=== PATIENT | female | born 1970 ===

== ENCOUNTER 2017-06-09 10:11 | Emergency (ER) | payer MEDICAID ==
[2017-06-09 10:47] VITALS: BMI 34.1
[2017-06-09 10:50] VITALS: RESP 18
[2017-06-09 11:55] LABS: BASO % 0.4 % (0.0-2.0); EOS # 0.1 K/uL (0.0-0.7); EOS % 1.8 % (0.0-4.0); HEMATOCRIT 38.1 % (34.0-47.0); LYMPH # 2.2 K/uL (1.0-4.3); LYMPH % 43.2 % (20.0-40.0); MEAN CELL VOLUME 88.3 fL (81.0-99.0); MEAN CORPUSCULAR HEMOGLOBIN 29.5 pg (27.0-31.0); MEAN CORPUSCULAR HGB CONC 33.4 g/dL (33.0-37.0); MEAN PLATELET VOLUME 7.7 fL (7.2-11.7); MONO # 0.5 K/uL (0.0-0.8); MONO % 10.4 % (0.0-10.0); NRBC % 0.1 % (0.0-2.0); RED CELL DISTRIBUTION WIDTH 14.2 % (11.5-14.5); WHITE BLOOD COUNT 5.2 K/uL (4.8-10.8)
[2017-06-09 12:06] LABS: CHLORIDE 100 mmol/L (98-107)
[2017-06-09 12:07] LABS: POTASSIUM 3.9 mmol/L (3.6-5.2); SODIUM 137 mmol/L (132-148)
[2017-06-09 12:09] LABS: ALB/GLOB RATIO 1.1 (1.0-2.1); ALKALINE PHOSPHATASE 63 U/L (38-126); AST/SGOT 24 U/L (14-36); BILIRUBIN,TOTAL 0.9 mg/dL (0.2-1.3); BLOOD UREA NITROGEN 10 mg/dL (7-17); CARBON DIOXIDE 29 mmol/L (22-30); GFR AFRICAN-AMERICAN > 60; GLUCOSE,RANDOM 93 mg/dL (65-105)
[2017-06-09 12:10] LABS: ALT/SGPT 35 U/L (9-52); CALCIUM 9.3 mg/dl (8.6-10.4)
--- NOTE | 2017-06-09 12:19 | CT ---
PROCEDURE: CT HEAD WITHOUT CONTRAST. HISTORY: r/o ICH COMPARISON: None available. TECHNIQUE: Axial computed tomography images were obtained through the head/brain without intravenous contrast. Radiation dose: Total exam DLP = 914.81 mGy-cm. This CT exam was performed using one or more of the following dose reduction techniques: Automated exposure control, adjustment of the mA and/or kV according to patient size, and/or use of iterative reconstruction technique. FINDINGS: HEMORRHAGE: No intracranial hemorrhage. BRAIN: No mass effect or edema. No atrophy or chronic microvascular ischemic changes. VENTRICLES: Unremarkable. No hydrocephalus. CALVARIUM: Unremarkable. PARANASAL SINUSES: Unremarkable as visualized. No significant inflammatory changes. MASTOID AIR CELLS: Unremarkable as visualized. No inflammatory changes. OTHER FINDINGS: None. IMPRESSION: Normal CT of the Head.
--- NOTE | 2017-06-09 12:31 | C.PDOC ---
History Of Present Illness 47 year old female presents to the ED with complaints of headache for three days. Patient notes yesterday she began to feel dizziness and nausea. She reports her blood pressure was 183/90 this morning and she took her blood pressure medications at 6:30am. Patient denies fever, chest pain, shortness of breath, visual changes, or vomiting. Chief Complaint (Nursing): Headache History Per: Patient History/Exam Limitations: no limitations Onset/Duration Of Symptoms: Days (3 days ), Worse Since (yesterday ) Current Symptoms Are (Timing): Still Present Associated Symptoms: Dizziness, Headache. denies: Chest Pain, Blurred Vision Exacerbating Factor(s): Pos: None Recent travel outside of the [place]: No Past Medical History Reviewed: Historical Data, Nursing Documentation, Vital Signs Vital Signs: Last Vital Signs Temp 97.6 F 06/09/17 13:07 Pulse 58 L 06/09/17 13:07 Resp 18 06/09/17 13:07 BP 130/84 06/09/17 13:07 Pulse Ox 100 06/09/17 14:53 - Medical History PMH: HTN, Kidney Stones Family History: States: Unknown Family Hx - Social History Hx Tobacco Use: No Hx Alcohol Use: No Hx Substance Use: No - Immunization History Hx Tetanus Toxoid Vaccination: No Hx Influenza Vaccination: No Hx Pneumococcal Vaccination: No Review Of Systems Constitutional: Negative for: Fever, Chills Eyes: Positive for: Vision Change Cardiovascular: Negative for: Chest Pain, Palpitations Respiratory: Negative for: Cough, Shortness of Breath Gastrointestinal: Positive for: Nausea. Negative for: Vomiting, Abdominal Pain Neurological: Positive for: Headache, Dizziness. Negative for: Weakness, Numbness Physical Exam - Physical Exam Appears: Non-toxic, No Acute Distress Skin: Warm, Dry Head: Atraumatic, Normacephalic, No Tenderness, No Swelling, No Abrasion, No Laceration Eye(s): bilateral: Normal Inspection, PERRL, EOMI Oral Mucosa: Moist Neck: Normal ROM, No Midline Cervical Tenderness, No Paracervical Tenderness, Supple Chest: Symmetrical, No Deformity, No Tenderness Cardiovascular: Rhythm Regular, No Murmur Respiratory: No Rales, No Rhonchi, No Wheezing, Other (clear to auscultation bilaterally ) Gastrointestinal/Abdominal: Soft, No Tenderness, No Distention, No Guarding, No Rebound Extremity: Normal ROM, No Tenderness, No Pedal Edema, No Calf Tenderness, Capillary Refill (good capillary refill, less than two seconds ), No Deformity, No Swelling Neurological/Psych: Oriented x3, Normal Speech, Normal Cognition, Normal Cranial Nerves, No Cerebellar Signs, Normal Motor, Normal Sensation Gait: Steady ED Course And Treatment - Laboratory Results Result Diagrams: 06/09/17 11:49 06/09/17 11:49 O2 Sat by Pulse Oximetry: 100 (RA) Progress Note: EKG, Head CT, and blood work were ordered. Patient was given Meclizine, Lopressor, and Microzide. On re-evaluation, patient notes she is feeling better and would like to be discharged. Disposition - Disposition Referrals: [facility] Anca Chand, [Non-Staff] - Disposition: HOME/ ROUTINE Disposition Time: 13:00 Condition: GOOD Additional Instructions: Thank you for letting us take care of you today. Your provider was Dr. Thomas. You were treated for dizziness. The emergency medical care you received today was directed at your acute symptoms. If you were prescribed any medication, please fill it and take as directed. It may take several days for your symptoms to resolve. Return to the Emergency Department if your symptoms worsen, do not improve, or if you have any other problems. Please contact your doctor or call one of the physicians/clinics you have been referred to that are listed on the Patient Visit Information form that is included in your discharge packet. Bring any paperwork you were given at discharge with you along with any medications you are taking to your follow up visit. Our treatment cannot replace ongoing medical care by a primary care provider (PCP) outside of the emergency department. Thank you for allowing the [facility] team to be part of your care today. Follow up with your doctor in 3-4 days for re-evaluation and further management. [facility]ence por permitirnos cuidar de usted hoy. Lee proveedor fue el Dr. Thomas. Usted fue tratado por mareos. La atencin mdica de emergencia que recibi hoy estaba dirigida a erendira sntomas agudos. Si le recetaron algn medicamento, ll migel y tome laura se le indic. Puede llevar varios linn resolver erendira sntomas. Regrese al Departamento de Emergencias si erendira sntomas empeoran, no mejoran o si tiene algn otro problema. Comunquese con lee mdico o llame a aidan de los mdicos / clnicas a los que garcia sido derivado que figuran en el formulario de informacin de visita del paciente que se incluye en lee paquete de oren. Lleve consigo cualquier papeleo que reciba al oren junto con cualquier medicamento que est tomando en lee visita de seguimiento. Nuestro tratamiento no puede reemplazar la atencin m dica continua de un proveedor de atencin primaria (PCP) fuera del departamento de emergencias. [facility] por permitir que el equipo de [facility] sea parte de lee atencin hoy. Syl un seguimiento con lee mdico en 3-4 linn para jude reevaluacin y administracin adicional. Prescriptions: Meclizine [Meclizine*] 25 mg PO Q6 PRN #20 tab PRN Reason: Dizziness Instructions: Dizziness (ED) Forms: Gen Discharge Inst Nepali Print Language: PORTUGUESE - Clinical Impression Clinical Impression: Headache, Hypertension - Scribe Statement The provider has reviewed the documentation as recorded by the Scribe Aysha Salcedo All medical record entries made by the Scribe were at my direction and personally dictated by me. I have reviewed the chart and agree that the record accurately reflects my personal performance of the history, physical exam, medical decision making, and the department course for this patient. I have also personally directed, reviewed, and agree with the discharge instructions and disposition.
[2017-06-09 13:08] VITALS: BP 130/84; PULSE 58; TEMP 97.6
[2017-06-09 14:53] VITALS: O2SAT 100
== END 2017-06-09 15:04 | disposition home or self-care (01) ==
LOC: C.ER 10:11
DX: I10 Essential (primary) hypertension (principal); R51 Headache